=== PATIENT | female | born 1945 | race Caucasian/White ===

== ENCOUNTER 2018-02-16 11:32 | Inpatient (IN) ==
[2018-02-16] MEDS ORDERED: ASPIRIN CHEW 81 MG TABLET PO STA (12:14)
[2018-02-16] MEDS ORDERED: ONDANSETRON 4 MG/2 ML VIAL IV STA (12:14)
[2018-02-16] MEDS ORDERED: hydrALAZINE 20 MG/1 ML VIAL ONE (12:14)
[2018-02-16] MEDS ORDERED: NITROGLYCERIN 2% OINT 1 INCH/GM PACK TOP STA (12:14)
[2018-02-16] MEDS ORDERED: hydrALAZINE 20 MG/1 ML VIAL IV STA (12:14)
[2018-02-16 12:43] LABS: Basophils # 0.1 10*3/uL (0.0-0.2); Basophils % 1.1 % (0.0-0.8); Eosinophils # 0.5 10*3/uL (0.0-0.87); Eosinophils % 5.8 % (0.00-10.9); Hematocrit 48.3 VOL% (35.7-47.0); Hemoglobin 15.8 GM/DL (12.0-16.0); Immature Granulocytes % 0.3 %; Immature Granulocytes Absolute 0.02 #; Lymphocytes # 2.6 10*3/uL (1.4-4.0); Lymphocytes % 31.9 % (21.3-54.2); Mean Corpuscular HGB Conc 32.7 GM/DL (32-36); Mean Corpuscular Hemoglobin 32 PG (27-34); Mean Corpuscular Volume 98.4 FL (87-102); Monocytes % 12.4 % (1.7-12.7); Neutrophils # 3.9 10*3/uL (1.4-7.4); Neutrophils % 48.5 % (38.7-73.9); Platelet Count 205 T/CUMM (130-400); Red Blood Count 4.91 MC/CUMM (3.8-5.5); Red Cell Distribution Width 13.2 % (9.3-17.3)
[2018-02-16 13:25] LABS: Albumin 3.6 G/DL (3.4-5.0); Bilirubin,Total 0.5 MG/DL (0.2-1.0); Potassium 4.3 MMOL/L (3.5-5.1); Total Protein 8.1 G/DL (6.4-8.3)
[2018-02-16] MEDS ORDERED: GLUCAGON 1 MG VIAL IM PRN (16:21)
[2018-02-16] MEDS ORDERED: DEXTROSE 50% 25 GM/50 ML VIAL IV PRN (16:21)
[2018-02-16] MEDS ORDERED: ONDANSETRON 4 MG/2 ML VIAL IV PRN (16:21)
[2018-02-16] MEDS ORDERED: INFLUENZA VIRUS VACCINE 0.5 ML SYRINGE IM ONE (17:00)
[2018-02-16 17:16] LABS: Apearance,Urine CLEAR (Clear); Bacteria,Urine Occasional /HPF (Few); Bilirubin,Urine Negative (Negative); Blood, Urine Negative (Negative); Glucose,Urine (UA) Negative (Negative); Ketones,Urine Negative (Negative); Nitrite,Urine Negative (Negative); Protein,Urine Negative; RBC,Urine <1 /HPF (0-4); Squamous Epithelial Cell,Urine Occasional /HPF (0-10); Urine Color Straw (Yellow); Urine Specific Gravity 1.003 (1.001-1.035); Urine Urobilinogen < 2.0 EU/DL (0.2-1.0); WBC,Urine <1 /HPF (0-6)
[2018-02-16] MEDS: SODIUM CHLORIDE 0.9% 1,000 ML IV SCH (18:20)
[2018-02-16] MEDS: INSULIN REGULAR 100 UNIT/ML SUBCUT SCH (18:34)
[2018-02-16] MEDS: ACETAMINOPHEN 325 MG TABLET PO PRN (18:35)
[2018-02-16] MEDS: IPRATROPIUM 500 MCG/2.5 ML NEB RESP TX SCH (19:10)
[2018-02-16] MEDS ORDERED: hydrALAZINE 25 MG TABLET PO SCH (21:00)
[2018-02-16] MEDS: LOSARTAN 50 MG TABLET PO SCH (21:29)
[2018-02-16] MEDS: DOCUSATE SODIUM 100 MG CAPSULE PO SCH (21:29)
[2018-02-16] MEDS: ENOXAPARIN 80 MG/0.8 ML SYRINGE SUBCUT SCH (21:29)
[2018-02-16] MEDS: traZODone 50 MG TABLET PO SCH (21:29)
[2018-02-16 22:20] LABS: Troponin I 0.084 NG/ML (0.00-0.045)
[2018-02-16] MEDS: CLINDAMYCIN INJ 300 MG in PREMIX 1 EACH IV SCH (22:45)
[2018-02-17] MEDS: IPRATROPIUM 500 MCG/2.5 ML NEB RESP TX SCH ×4 (00:44→19:28)
[2018-02-17] MEDS: hydrALAZINE 25 MG TABLET PO SCH ×3 (01:10→21:58)
[2018-02-17 05:38] LABS: Basophils # 0.1 10*3/uL (0.0-0.2); Basophils % 1.2 % (0.0-0.8); Eosinophils # 0.4 10*3/uL (0.0-0.87); Hemoglobin 14.4 GM/DL (12.0-16.0); Immature Granulocytes % 0.7 %; Immature Granulocytes Absolute 0.05 #; Lymphocytes # 2.6 10*3/uL (1.4-4.0); Lymphocytes % 38.7 % (21.3-54.2); Mean Corpuscular Hemoglobin 32 PG (27-34); Mean Corpuscular Volume 99.1 FL (87-102); Mean Platelet Volume 11.1 FL (9.6-12.0); Monocytes # 0.8 10*3/uL (0.11-0.8); Monocytes % 11.4 % (1.7-12.7); Neutrophils # 2.9 10*3/uL (1.4-7.4); Platelet Count 179 T/CUMM (130-400); Red Blood Count 4.54 MC/CUMM (3.8-5.5); Red Cell Distribution Width 13.4 % (9.3-17.3); White Blood Count 6.8 T/CUMM (4-12)
[2018-02-17 05:55] LABS: Albumin 2.8 G/DL (3.4-5.0); Bilirubin,Total 0.5 MG/DL (0.2-1.0); Calcium 9.8 MG/DL (8.5-10.1); Osmolality,Calculated 292.4 MOS/KG (273-304); Potassium 4.1 MMOL/L (3.5-5.1); Risk Ratio 3.45
[2018-02-17 06:03] LABS: Thyroid Stimulating Hormone 0.504 uIU/ml (0.358-3.74)
[2018-02-17 07:06] LABS: Folate 20.2 NG/ML (5.4-24.0)
[2018-02-17 07:29] LABS: Eosinophils 3 % (0-10); Hypochromasia 1+; Lymphocytes 41 % (20-55); Platelet Estimate Adequate; Segmented Neutrophils 46 % (50-85); Total Cells Counted 100
[2018-02-17] MEDS: INSULIN REGULAR 100 UNIT/ML SUBCUT SCH ×4 (07:51→21:46)
[2018-02-17] MEDS: PANTOPRAZOLE 40 MG TABLET PO SCH (08:50)
[2018-02-17] MEDS: METOPROLOL SUCCINATE XL 25 MG TABLET PO SCH (08:51)
[2018-02-17] MEDS: LEVOTHYROXINE 75 MCG TABLET PO SCH (08:51)
[2018-02-17] MEDS: DOCUSATE SODIUM 100 MG CAPSULE PO SCH ×2 (08:51→21:58)
[2018-02-17] MEDS: LOSARTAN 50 MG TABLET PO SCH ×2 (08:51→22:13)
[2018-02-17] MEDS: MULTIVITAMIN (OCUVITE) TABLET PO SCH (08:51)
[2018-02-17] MEDS: FAMOTIDINE 20 MG TABLET PO SCH (08:51)
[2018-02-17] MEDS: ASPIRIN EC 81 MG TABLET PO SCH (08:51)
[2018-02-17] MEDS: CYANOCOBALAMIN 500 MCG TABLET PO SCH (08:51)
[2018-02-17] MEDS: MAGNESIUM OXIDE 400 MG TABLET PO SCH (08:51)
[2018-02-17] MEDS: ENOXAPARIN 80 MG/0.8 ML SYRINGE SUBCUT SCH ×2 (08:52→21:58)
[2018-02-17] MEDS: NYSTATIN 500,000 UNIT/5 ML UDCUP SWISH/SWAL SCH ×4 (08:52→22:12)
[2018-02-17] MEDS: NICOTINE 21 MG/24 HR PATCH TRANSDERM SCH (08:58)
[2018-02-17] MEDS: CLINDAMYCIN INJ 300 MG in PREMIX 1 EACH IV SCH ×3 (08:59→22:00)
[2018-02-17] MEDS: DOCOSAHEXANOIC ACID 200 MG PO SCH (09:43)
[2018-02-17 12:18] LABS: Troponin I 0.041 NG/ML (0.00-0.045)
[2018-02-17] MEDS: DEXTROSE 5% 1,000 ML IV SCH (17:17)
[2018-02-17] MEDS: SODIUM CHLORIDE 0.9% 1,000 ML IV SCH (17:24)
[2018-02-17] MEDS: traZODone 50 MG TABLET PO SCH (21:58)
[2018-02-17] MEDS: SODIUM CHLORIDE 23.4% CONC INJ 38.5 MEQ in STERILE WATER INJ 1,000 ML IV SCH (22:35)
[2018-02-17] MEDS: ACETAMINOPHEN 325 MG TABLET PO PRN (22:40)
[2018-02-18] MEDS: IPRATROPIUM 500 MCG/2.5 ML NEB RESP TX SCH ×4 (00:02→20:26)
[2018-02-18] MEDS: ACETAMINOPHEN 325 MG TABLET PO PRN (04:40)
[2018-02-18 05:26] LABS: Calcium 8.9 MG/DL (8.5-10.1); Osmolality,Calculated 273.8 MOS/KG (273-304); Potassium 3.8 MMOL/L (3.5-5.1)
[2018-02-18 05:42] LABS: Basophils # 0.1 10*3/uL (0.0-0.2); Basophils % 1.6 % (0.0-0.8); Eosinophils # 0.4 10*3/uL (0.0-0.87); Hematocrit 42.2 VOL% (35.7-47.0); Hemoglobin 13.4 GM/DL (12.0-16.0); Immature Granulocytes % 0.7 %; Immature Granulocytes Absolute 0.05 #; Lymphocytes # 2.8 10*3/uL (1.4-4.0); Lymphocytes % 41.2 % (21.3-54.2); Mean Corpuscular HGB Conc 31.8 GM/DL (32-36); Mean Corpuscular Hemoglobin 33 PG (27-34); Mean Corpuscular Volume 103.4 FL (87-102); Mean Platelet Volume 11.3 FL (9.6-12.0); Monocytes # 0.8 10*3/uL (0.11-0.8); Monocytes % 11.4 % (1.7-12.7); Neutrophils # 2.6 10*3/uL (1.4-7.4); Neutrophils % 39.1 % (38.7-73.9); Platelet Count 148 T/CUMM (130-400); Red Blood Count 4.08 MC/CUMM (3.8-5.5); Red Cell Distribution Width 13.6 % (9.3-17.3); White Blood Count 6.7 T/CUMM (4-12)
[2018-02-18] MEDS: LEVOTHYROXINE 75 MCG TABLET PO SCH (06:30)
[2018-02-18] MEDS: CLINDAMYCIN INJ 300 MG in PREMIX 1 EACH IV SCH ×3 (06:35→23:01)
[2018-02-18] MEDS: INSULIN REGULAR 100 UNIT/ML SUBCUT SCH ×3 (07:22→17:36)
[2018-02-18] MEDS: DEXTROSE 5% 1,000 ML IV SCH (07:24)
[2018-02-18] MEDS: CYANOCOBALAMIN 500 MCG TABLET PO SCH (09:24)
[2018-02-18] MEDS: MULTIVITAMIN (OCUVITE) TABLET PO SCH (09:24)
[2018-02-18] MEDS: MAGNESIUM OXIDE 400 MG TABLET PO SCH (09:24)
[2018-02-18] MEDS: hydrALAZINE 25 MG TABLET PO SCH ×2 (09:24→21:52)
[2018-02-18] MEDS: LOSARTAN 50 MG TABLET PO SCH ×2 (09:24→21:52)
[2018-02-18] MEDS: ASPIRIN EC 81 MG TABLET PO SCH (09:24)
[2018-02-18] MEDS: DOCUSATE SODIUM 100 MG CAPSULE PO SCH ×2 (09:24→21:52)
[2018-02-18] MEDS: METOPROLOL SUCCINATE XL 25 MG TABLET PO SCH (09:24)
[2018-02-18] MEDS: FAMOTIDINE 20 MG TABLET PO SCH (09:24)
[2018-02-18] MEDS: DOCOSAHEXANOIC ACID 200 MG PO SCH (09:25)
[2018-02-18] MEDS: PANTOPRAZOLE 40 MG TABLET PO SCH (09:25)
[2018-02-18] MEDS: ENOXAPARIN 80 MG/0.8 ML SYRINGE SUBCUT SCH (09:30)
[2018-02-18] MEDS: LIDOCAINE 5% PATCH TRANSDERM SCH (09:31)
[2018-02-18] MEDS: NYSTATIN 500,000 UNIT/5 ML UDCUP SWISH/SWAL SCH ×4 (09:32→21:51)
[2018-02-18] MEDS: NICOTINE 21 MG/24 HR PATCH TRANSDERM SCH (09:32)
[2018-02-18] MEDS: SODIUM CHLORIDE 23.4% CONC INJ 38.5 MEQ in STERILE WATER INJ 1,000 ML IV SCH ×2 (12:15→17:22)
[2018-02-18] MEDS: GABAPENTIN 100 MG CAPSULE PO SCH ×2 (17:20→21:52)
[2018-02-18] MEDS: traZODone 50 MG TABLET PO SCH (21:52)
[2018-02-19] MEDS: IPRATROPIUM 500 MCG/2.5 ML NEB RESP TX SCH ×4 (01:48→19:10)
[2018-02-19] MEDS: INSULIN REGULAR 100 UNIT/ML SUBCUT SCH ×3 (03:52→12:40)
[2018-02-19 05:09] LABS: Calcium 9.7 MG/DL (8.5-10.1); Osmolality,Calculated 280.3 MOS/KG (273-304); Potassium 4.1 MMOL/L (3.5-5.1)
[2018-02-19] MEDS: LEVOTHYROXINE 75 MCG TABLET PO SCH (06:23)
[2018-02-19] MEDS: CLINDAMYCIN INJ 300 MG in PREMIX 1 EACH IV SCH ×3 (06:23→22:17)
[2018-02-19] MEDS: MAGNESIUM OXIDE 400 MG TABLET PO SCH (10:07)
[2018-02-19] MEDS: hydrALAZINE 25 MG TABLET PO SCH ×2 (10:08→22:16)
[2018-02-19] MEDS: FAMOTIDINE 20 MG TABLET PO SCH (10:08)
[2018-02-19] MEDS: METOPROLOL SUCCINATE XL 25 MG TABLET PO SCH (10:08)
[2018-02-19] MEDS: PANTOPRAZOLE 40 MG TABLET PO SCH (10:08)
[2018-02-19] MEDS: ASPIRIN EC 81 MG TABLET PO SCH (10:08)
[2018-02-19] MEDS: MULTIVITAMIN (OCUVITE) TABLET PO SCH (10:08)
[2018-02-19] MEDS: GABAPENTIN 100 MG CAPSULE PO SCH ×3 (10:09→22:17)
[2018-02-19] MEDS: NICOTINE 21 MG/24 HR PATCH TRANSDERM SCH (10:09)
[2018-02-19] MEDS: LOSARTAN 50 MG TABLET PO SCH ×2 (10:09→22:16)
[2018-02-19] MEDS: NYSTATIN 500,000 UNIT/5 ML UDCUP SWISH/SWAL SCH ×4 (10:09→20:58)
[2018-02-19] MEDS: DOCOSAHEXANOIC ACID 200 MG PO SCH (10:10)
[2018-02-19] MEDS: LIDOCAINE 5% PATCH TRANSDERM SCH (10:10)
[2018-02-19] MEDS: CYANOCOBALAMIN 500 MCG TABLET PO SCH (10:10)
[2018-02-19] MEDS: DOCUSATE SODIUM 100 MG CAPSULE PO SCH ×2 (10:10→20:58)
[2018-02-19] MEDS ORDERED: POLYETHYLENE GLYCOL POWDER 17 GM PACK PO SCH (11:00)
[2018-02-19] MEDS ORDERED: traZODone 50 MG TABLET PO PRN (12:57)
[2018-02-19] MEDS: POLYETHYLENE GLYCOL POWDER 17 GM PACK PO SCH ×2 (15:03→20:59)
[2018-02-20] MEDS: IPRATROPIUM 500 MCG/2.5 ML NEB RESP TX SCH ×3 (00:22→14:35)
[2018-02-20] MEDS: POLYETHYLENE GLYCOL POWDER 17 GM PACK PO SCH ×3 (03:53→14:33)
[2018-02-20 04:01] LABS: Calcium 9.3 MG/DL (8.5-10.1); Potassium 4.1 MMOL/L (3.5-5.1)
[2018-02-20] MEDS: CLINDAMYCIN INJ 300 MG in PREMIX 1 EACH IV SCH ×2 (05:32→15:06)
[2018-02-20] MEDS: LEVOTHYROXINE 75 MCG TABLET PO SCH (05:34)
[2018-02-20] MEDS ORDERED: LIDOCAINE 1% 5 ML VIAL ONE (09:00)
[2018-02-20] MEDS ORDERED: BISACODYL 5 MG TABLET ONE (13:55)
[2018-02-20] MEDS ORDERED: BISACODYL 5 MG TABLET PO ONE ×2 (14:02→16:35)
[2018-02-20] MEDS: NYSTATIN 500,000 UNIT/5 ML UDCUP SWISH/SWAL SCH ×3 (14:03→16:53)
[2018-02-20] MEDS: FAMOTIDINE 20 MG TABLET PO SCH (14:04)
[2018-02-20] MEDS: METOPROLOL SUCCINATE XL 25 MG TABLET PO SCH (14:04)
[2018-02-20] MEDS: MAGNESIUM OXIDE 400 MG TABLET PO SCH (14:04)
[2018-02-20] MEDS: ASPIRIN EC 81 MG TABLET PO SCH (14:04)
[2018-02-20] MEDS: PANTOPRAZOLE 40 MG TABLET PO SCH (14:04)
[2018-02-20] MEDS: DOCUSATE SODIUM 100 MG CAPSULE PO SCH (14:05)
[2018-02-20] MEDS: CYANOCOBALAMIN 500 MCG TABLET PO SCH (14:05)
[2018-02-20] MEDS: hydrALAZINE 25 MG TABLET PO SCH ×3 (14:05→19:17)
[2018-02-20] MEDS: MULTIVITAMIN (OCUVITE) TABLET PO SCH (14:05)
[2018-02-20] MEDS: LOSARTAN 50 MG TABLET PO SCH (14:05)
[2018-02-20] MEDS: LIDOCAINE 5% PATCH TRANSDERM SCH (14:05)
[2018-02-20] MEDS: GABAPENTIN 100 MG CAPSULE PO SCH ×3 (14:27→19:17)
[2018-02-20] MEDS: NICOTINE 21 MG/24 HR PATCH TRANSDERM SCH (14:27)
[2018-02-20 17:14] VITALS: BP 125/58
== END 2018-02-20 19:27 | disposition home health service (06) | DRG 392 ==
LOC: N.ED 11:32 → N.EDINP 15:00 → N.TELES 15:34
PROVIDERS: ADMIT Internal Medicine; ATTEND Internal Medicine